=== PATIENT | female | born 1940 | race Caucasian/White ===

== ENCOUNTER 2018-11-04 15:54 | Inpatient (IN) | payer MEDICARE, OTHER ==
[~2018-11-04] VITALS: Ht 157.5 cm; Wt 47.6 kg
[2018-11-04 20:16] VITALS: BP 145/77
[2018-11-04] MEDS ORDERED: Z GUARD REMEDY PASTE 57 GM TUBE TOP PRN (20:30)
[2018-11-04] MEDS ORDERED: LIDO30AD10 TD (22:23)
[2018-11-04] MEDS ORDERED: OMEP20TA20 GT (22:23)
[2018-11-04] MEDS ORDERED: IBUP-1957 GT (22:23)
[2018-11-04] MEDS ORDERED: ASCO500P18 GT (22:23)
[2018-11-04] MEDS ORDERED: LORA1TAB GT (22:23)
[2018-11-04] MEDS ORDERED: CALC-7 GT (22:23)
[2018-11-04] MEDS ORDERED: GUAI1TBM19 GT (22:23)
[2018-11-04] MEDS ORDERED: CLON1TAB GT (22:23)
[2018-11-04] MEDS ORDERED: HYDR-3326 GT (22:23)
[2018-11-04] MEDS ORDERED: CYCL30DR OP (22:23)
[2018-11-04] MEDS: JEVITY 1.2 1000 ML LIQUID GT SCH (23:09)
--- NOTE | 2018-11-05 04:49 | NUR ---
received a 77 yr old female from [facility] via gurney @ 1945pm (11/04/18) with admitting diagnosis of S/P right total hip arthroplasty done on (10/29) by Dr Lepe. Awake alert and oriented x3 but patient non-verbal. Has Hx of HTN, GERD, Multiple sclerosis, ALS (Soraida Gehrig's disease) and progressive bulbar dysfunction. Patient accompanied by daughter and outdoor emergency care technician on at all times. Vital signs taken and recorded. T96.7 HR 83 Resp 18 BP 145/77 pulse Ox 95% RA. Skin intact with redness on sacral area, Right hip incision with steristrips and iodoform gauze intact and healing. Patient been having this mucus drooling with whitish secretions noted, suctioned as needed, with yadira. Patient able to do own suction. Patient incontinent of bowel and bladder. Kept clean and dry. BM noted this shift. Patient also has a Gtube flushed and patent, on Jevity bolus feeds given q6hr as ordered. Tolerated Gtube feeings well. No nausea nor vomiting noted. Dr Norton aware of patient's admission and meds need to reconcile. No signs of agitation nor restlessness.Will monitor patient.
[2018-11-05 06:04] VITALS: BP 131/66
[2018-11-05] MEDS: JEVITY 1.2 1000 ML LIQUID GT SCH ×4 (06:16→23:06)
[2018-11-05 08:33] VITALS: BP 146/69
--- NOTE | 2018-11-05 09:30 | NUR ---
Received pt. in bed in no distress. A/OX3 non-verbal but able to make her needs known through gestures. Pt. showered this AM and tolerated well. G-tube care rendered. RT. hip surgical incision dressing changed PRN soiled. Seen by Dr. Belcher this AM with AM labs ordered. Pt. with PVT CG x 24 hrs. DTR at bedside for support. All pt. needs attended and met promptly. Safety measures in place. Call light and all frequently used items within pt. reach. Will continue to monitor accordingly.
[2018-11-05] MEDS ORDERED: GUAIFENESIN/DEXTROMETHORPHAN TAB.SR.12H PO PRN (09:45)
[2018-11-05] MEDS ORDERED: CLONAZEPAM 1 MG TABLET GT PRN (09:45)
[2018-11-05] MEDS: CALCIUM CARB/VITAMIN D 250MG-125UNITS TABLET GT SCH (10:00)
[2018-11-05] MEDS: ASCORBIC ACID 500 MG TABLET GT SCH (10:00)
[2018-11-05] MEDS: PANTOPRAZOLE ORAL SUSPENSION 40 MG SUSPDR.PKT GT SCH (11:18)
--- NOTE | 2018-11-05 11:19 | NUR ---
INTERDISCIPLINARY TEAM CONFERENCE
[2018-11-05] MEDS: LORAZEPAM 1 MG TABLET GT PRN ×2 (12:42→19:59)
[2018-11-05] MEDS: LIDOCAINE 5% PATCH TD SCH (12:43)
--- NOTE | 2018-11-05 13:29 | NUR ---
Spoke to DTR about Restasis eye drops. Per DTR, she will bring eye drops on her next visit.
[2018-11-05] MEDS ORDERED: GUAIFENESIN/DEXTROMETHORPHAN 5 ML UDC GT PRN (13:45)
[2018-11-05 16:13] VITALS: BP 143/80
[2018-11-05] MEDS ORDERED: RESTASIS EYE EACHEYE SCH (17:00)
--- NOTE | 2018-11-05 18:23 | NUR ---
End of shift note: No significant change during this shift. Pt. seen by Dr. De Los Santos this PM. All needs attended and met promptly. Safety measures in placed. Bed in low position, brake on, side rails up x2 as an enabler. Call light and all frequently used items within pt. reach. Will endorse to next shift accordingly.
[2018-11-05] MEDS: IBUPROFEN 800 MG TABLET GT PRN (18:57)
[2018-11-05 20:08] VITALS: BP 131/75
--- NOTE | 2018-11-05 21:22 | NUR ---
Received pt in bed, AAO x 4 with caregiver at bedside. Nonverbal, but able to communicate using body language and nonverbal cues. Denies pain or discomfort at this time. GTube noted, flushed with sterile water; patent and intact, no noted distension; soft & nontender. All safety measures and fall precautions maintained. Call light and all personal belongings within reach. Caregiver at bedside. Will continue to monitor.
[2018-11-06 04:17] VITALS: BP 136/72
[2018-11-06] MEDS: JEVITY 1.2 1000 ML LIQUID GT SCH ×4 (06:05→21:16)
[2018-11-06] MEDS: PANTOPRAZOLE ORAL SUSPENSION 40 MG SUSPDR.PKT GT SCH (06:06)
[2018-11-06 06:30] LABS: BASOPHILS % (AUTO) 0.5 % (0.0-2.0); EOSINOPHILS # (AUTO) 0.2 K/uL (0.0-0.7); HEMATOCRIT 32.9 % (31.2-41.9); LYMPHOCYTES # (AUTO) 1.2 K/uL (20.0-40.0); LYMPHOCYTES % (AUTO) 20.2 % (20.5-51.5); MEAN CORPUSCULAR HEMOGLOBIN 31.7 uug (24.7-32.8); MEAN CORPUSCULAR HGB CONC 33 g/dL (32.3-35.6); MEAN CORPUSCULAR VOLUME 95.2 fL (75.5-95.3); MONOCYTES # (AUTO) 0.6 K/uL (2.0-10.0); MONOCYTES % (AUTO) 10.8 % (0.0-11.0); NEUTROPHILS # (AUTO) 3.8 K/uL (1.8-8.9); NEUTROPHILS % (AUTO) 65.5 % (38.5-71.5); PLATELET COUNT (AUTO) 329 K/uL (179-408); RED BLOOD CELL COUNT(AUTO) 3.45 MIL/uL (3.63-4.92); WHITE BLOOD COUNT (AUTO) 5.7 K/uL (3.8-11.8)
[2018-11-06 06:55] LABS: CARBON DIOXIDE 32 mmol/L (21-32); CHLORIDE 105 mmol/L (98-107); CREATININE 0.4 mg/dL (0.6-1.3); GLUCOSE 105 mg/dL (74-106); PHOSPHOROUS 3.7 mg/dL (2.5-4.9); POTASSIUM 3.3 mmol/L (3.5-5.1); UREA NITROGEN, BLOOD 12 mg/dL (7-18)
[2018-11-06] MEDS: LIDOCAINE 5% PATCH TD SCH (09:11)
[2018-11-06] MEDS: ASCORBIC ACID 500 MG TABLET GT SCH (09:11)
[2018-11-06] MEDS: CALCIUM CARB/VITAMIN D 250MG-125UNITS TABLET GT SCH (09:12)
[2018-11-06] MEDS: LORAZEPAM 1 MG TABLET GT PRN ×2 (11:15→21:11)
[2018-11-06] MEDS: IBUPROFEN 800 MG TABLET GT PRN (12:53)
[2018-11-06] MEDS ORDERED: POTASSIUM CHLORIDE 20 MEQ POWDER PACKET GT ONE (13:30)
--- NOTE | 2018-11-06 15:44 | NUR ---
jevity for 1800 given early per pt request says she is feeling hungry
[2018-11-06] MEDS: ACETYLCYSTEINE 10% 4ML VIAL NEB SCH ×2 (16:11→23:09)
[2018-11-06] MEDS: ALBUTEROL SULFATE 2.5 MG/ 0.5 ML NEBU NEB SCH ×2 (17:45→23:09)
[2018-11-06 20:00] VITALS: BP 138/79
--- NOTE | 2018-11-06 20:00 | NUR ---
Received patient awake and alert with caregiver at bedside. No signs of acute distress noted. Patient is non-verbal, but understands commands. Able to make needs known with caregiver. G-tube noted. Safety measures initiated. Bed is low and locked, call light within reach. Will continue to monitor.
--- NOTE | 2018-11-06 21:33 | NUR ---
Administered Jevity 1.2 scheduled at 0000 early due to patient saying she was hungry. It is scheduled Q6H. Last one was given at 1544
[2018-11-07] MEDS: IBUPROFEN 800 MG TABLET GT PRN ×3 (00:45→19:03)
--- NOTE | 2018-11-07 05:45 | NUR ---
Patient slept well throughout shift. No acute distress noted. Caregiver at bedside. Complained of pain with PRN motrin given and was effective. Vitals WNL. Safety measures given.
[2018-11-07 06:17] VITALS: BP 122/65
[2018-11-07] MEDS: JEVITY 1.2 1000 ML LIQUID GT SCH ×4 (06:18→23:15)
[2018-11-07] MEDS: ALBUTEROL SULFATE 2.5 MG/ 0.5 ML NEBU NEB SCH ×3 (06:26→22:34)
[2018-11-07] MEDS: ACETYLCYSTEINE 10% 4ML VIAL NEB SCH ×3 (06:26→22:34)
[2018-11-07] MEDS: PANTOPRAZOLE ORAL SUSPENSION 40 MG SUSPDR.PKT GT SCH (06:33)
[2018-11-07] MEDS: CALCIUM CARB/VITAMIN D 250MG-125UNITS TABLET GT SCH (09:33)
[2018-11-07] MEDS: ASCORBIC ACID 500 MG TABLET GT SCH (09:33)
[2018-11-07] MEDS: LIDOCAINE 5% PATCH TD SCH (09:35)
[2018-11-07] MEDS: LORAZEPAM 1 MG TABLET GT PRN ×2 (10:41→19:03)
--- NOTE | 2018-11-07 11:36 | NUR ---
INDIVIDUALIZED OVERALL PLAN OF CARE
--- NOTE | 2018-11-07 18:17 | NUR ---
IN BED RESTING QUIETLY. CAREGIVER AT BEDSIDE. STEFF GT FEEDS MIN RESIDUALS NOTED <20ML
[2018-11-07 19:31] VITALS: BP 136/81
[2018-11-07] MEDS: CLONAZEPAM 1 MG TABLET GT PRN (23:06)
[2018-11-07] MEDS: HYDROCODONE/APAP 5-325MG TABLET GT PRN (23:06)
[2018-11-08] MEDS: PANTOPRAZOLE ORAL SUSPENSION 40 MG SUSPDR.PKT GT SCH (06:01)
[2018-11-08] MEDS: JEVITY 1.2 1000 ML LIQUID GT SCH ×4 (06:01→23:48)
--- NOTE | 2018-11-08 06:16 | NUR ---
slept well most of the shift. awake alert and oriented. intensive care unit registered nurse at bedside. Gtube intact, Jevity 250 ml q6hr given as scheduled. Needs attended. Repositioned for comfort. Turned q2hr. Incontinent of bowel and bladder. Kept clean and dry. Will monitor patient.
[2018-11-08 07:00] VITALS: BP 120/59
[2018-11-08] MEDS: ACETYLCYSTEINE 10% 4ML VIAL NEB SCH ×3 (07:04→22:40)
[2018-11-08] MEDS: ALBUTEROL SULFATE 2.5 MG/ 0.5 ML NEBU NEB SCH ×3 (07:05→22:40)
[2018-11-08] MEDS: CALCIUM CARB/VITAMIN D 250MG-125UNITS TABLET GT SCH (08:20)
[2018-11-08] MEDS: LIDOCAINE 5% PATCH TD SCH (08:20)
[2018-11-08] MEDS: ASCORBIC ACID 500 MG TABLET GT SCH (08:20)
--- NOTE | 2018-11-08 09:00 | NUR ---
Received pt. in bed in no distress. A/OX3 non-verbal but able to make her needs known through gestures. G-tube care rendered. RT. hip surgical incision dressing C/D/I. Pt. with PVT CG x 24 hrs. All pt. needs attended and met promptly. Safety measures in place. Call light and all frequently used items within pt. reach. Will continue to monitor accordingly.
[2018-11-08 09:33] VITALS: BP 131/71
[2018-11-08] MEDS: LORAZEPAM 1 MG TABLET GT PRN (09:50)
[2018-11-08] MEDS: HYDROCODONE/APAP 5-325MG TABLET GT PRN ×2 (12:25→21:14)
[2018-11-08 16:08] VITALS: BP 122/67
--- NOTE | 2018-11-08 18:24 | NUR ---
End of shift note: No significant change during this shift. Pt. seen by Dr. Scanlon this PM. All needs attended and met promptly. Safety measures in placed. Bed in low position, brake on, side rails up x2 as an enabler. Call light and all frequently used items within pt. reach. Will endorse to next shift accordingly.
[2018-11-08 19:56] VITALS: BP 128/66
[2018-11-08] MEDS: CLONAZEPAM 1 MG TABLET GT PRN (21:14)
--- NOTE | 2018-11-09 04:16 | NUR ---
patient awake and alert. caregiver at bedside. no acute distress noted. Tolerated meds well given thru her Gtube. Jevity 250ml also given at scheduled times. No nausea nor vomiting noted. VSS kept comfortable. HOB up at all times. Aspiration precautions maintained.Incontinent of bowel and bladder. Kept clean and dry. Needs attended. Will monitor patient.
[2018-11-09 06:18] VITALS: BP 130/67
[2018-11-09] MEDS: JEVITY 1.2 1000 ML LIQUID GT SCH ×4 (06:19→23:35)
[2018-11-09] MEDS: PANTOPRAZOLE ORAL SUSPENSION 40 MG SUSPDR.PKT GT SCH (06:30)
[2018-11-09] MEDS: ALBUTEROL SULFATE 2.5 MG/ 0.5 ML NEBU NEB SCH ×3 (07:35→23:11)
[2018-11-09] MEDS: ACETYLCYSTEINE 10% 4ML VIAL NEB SCH ×3 (07:35→23:11)
[2018-11-09 08:30] VITALS: BP 128/61
[2018-11-09] MEDS: LIDOCAINE 5% PATCH TD SCH (08:51)
[2018-11-09] MEDS: IBUPROFEN 800 MG TABLET GT PRN (08:51)
[2018-11-09] MEDS: ASCORBIC ACID 500 MG TABLET GT SCH (08:51)
[2018-11-09] MEDS: CALCIUM CARB/VITAMIN D 250MG-125UNITS TABLET GT SCH (08:51)
--- NOTE | 2018-11-09 09:08 | NUR ---
Received pt. in bed in no distress. A/OX3 non-verbal but able to make her needs known through gestures. G-tube care rendered. RT. hip surgical incision dressing changed PRN soiled. Pt. with PVT CG x 24 hrs. All pt. needs attended and met promptly. Safety measures in place. Call light and all frequently used items within pt. reach. Will continue to monitor accordingly.
[2018-11-09 09:10] LABS: CALCITRIOL VIT D,1,25 DIHYDROX 62.3 pg/mL (19.9-79.3)
[2018-11-09] MEDS: LORAZEPAM 1 MG TABLET GT PRN (10:31)
[2018-11-09 16:27] VITALS: BP 114/67
--- NOTE | 2018-11-09 18:28 | NUR ---
End of shift note: No significant change during this shift. Pt. upgraded to puree diet for oral gratification today, tolerated first PM snacks with no s/sx of aspiration. All needs attended and met promptly. Safety measures in placed. Bed in low position, brake on, side rails up x2 as an enabler. Call light and all frequently used items within pt. reach. Will endorse to next shift accordingly.
--- NOTE | 2018-11-09 19:05 | NUR ---
[place], non verbal but able to make needs known. Caregiver at bedside. Denies any pain./discomforts at this time but requesting pain/sleeping meds at 2030. GT intact and patent. No s/s of infection/redness on Gt site. Safety measure and fall precaution maintained. Continue care as planned.
[2018-11-09 20:00] VITALS: BP 130/72
[2018-11-09] MEDS: CLONAZEPAM 1 MG TABLET GT PRN (21:55)
[2018-11-09] MEDS: HYDROCODONE/APAP 5-325MG TABLET GT PRN (21:55)
--- NOTE | 2018-11-09 21:55 | NUR ---
Medicated for pain as needed and ordered. Will monitor.
[2018-11-10] MEDS: IBUPROFEN 800 MG TABLET GT PRN ×2 (01:45→08:02)
--- NOTE | 2018-11-10 01:45 | NUR ---
Complaining of leg pain, Motrin given as needed. Will monitor.
[2018-11-10] MEDS: PANTOPRAZOLE ORAL SUSPENSION 40 MG SUSPDR.PKT GT SCH (06:11)
[2018-11-10] MEDS: JEVITY 1.2 1000 ML LIQUID GT SCH ×4 (06:11→23:17)
[2018-11-10 06:28] VITALS: BP 122/69
[2018-11-10] MEDS: ACETYLCYSTEINE 10% 4ML VIAL NEB SCH ×3 (07:20→22:38)
[2018-11-10] MEDS: ALBUTEROL SULFATE 2.5 MG/ 0.5 ML NEBU NEB SCH ×3 (07:20→22:38)
[2018-11-10] MEDS: ASCORBIC ACID 500 MG TABLET GT SCH (08:01)
[2018-11-10] MEDS: LIDOCAINE 5% PATCH TD SCH (08:01)
[2018-11-10] MEDS: CALCIUM CARB/VITAMIN D 250MG-125UNITS TABLET GT SCH (08:01)
[2018-11-10 09:18] VITALS: BP 122/56
--- NOTE | 2018-11-10 09:22 | NUR ---
Received pt. in bed in no distress. A/Ox3 non-verbal but able to make her needs known through gestures, facial expression, and writing. G-tube care rendered. RT. hip surgical incision dressing C/D/I. Pt. with PVT CG at bedside for support. All pt. needs attended and met promptly. Safety measures in place. Call light and all frequently used items within pt. reach. Will continue to monitor accordingly.
[2018-11-10] MEDS: LORAZEPAM 1 MG TABLET GT PRN ×2 (10:35→23:17)
[2018-11-10] MEDS: HYDROCODONE/APAP 5-325MG TABLET GT PRN (12:37)
[2018-11-10 15:59] VITALS: BP 111/63
[2018-11-10] MEDS ORDERED: MAGNESIUM HYDROXIDE 30 ML LIQUID UDC PO PRN (17:45)
[2018-11-10] MEDS ORDERED: MAGNESIUM HYDROXIDE 30 ML LIQUID UDC GT PRN (18:00)
--- NOTE | 2018-11-10 18:06 | NUR ---
End of shift note: No significant change during this shift. All needs attended and met promptly. Seen by Dr. Scanlon with new order for MOM prn constipation. Safety measures in placed. Bed in low position, brake on, side rails up x2 as an enabler. Call light and all frequently used items within pt. reach. Will endorse to next shift accordingly.
[2018-11-10 19:45] VITALS: BP 124/65
--- NOTE | 2018-11-10 19:45 | NUR ---
Patient received in bed, AAO x4. Non-verbal but able to make needs known through gesture, facial expression, and writing. No acute distress or SOB noted. On room air. No Complain of pain at this time. GT in placed. Private caregiver at the bedside for support. Physical assessment done. Safety measures observed. Fall precaution maintained. Bed in low position, side rails up x2 for safety, brake and alarm on. call light and personal belongings within reach. Continue to monitor.
[2018-11-11] MEDS: HYDROCODONE/APAP 5-325MG TABLET GT PRN ×2 (01:25→20:34)
[2018-11-11] MEDS: PANTOPRAZOLE ORAL SUSPENSION 40 MG SUSPDR.PKT GT SCH (06:21)
[2018-11-11] MEDS: JEVITY 1.2 1000 ML LIQUID GT SCH ×3 (06:21→18:53)
[2018-11-11] MEDS: POLYVINYL ALCOHOL OPHT DROPS 15 ML BOTTLE EACHEYE PRN (06:25)
[2018-11-11 06:47] VITALS: BP 139/74
[2018-11-11] MEDS: ACETYLCYSTEINE 10% 4ML VIAL NEB SCH ×3 (07:17→22:30)
[2018-11-11] MEDS: ALBUTEROL SULFATE 2.5 MG/ 0.5 ML NEBU NEB SCH ×3 (07:17→22:30)
--- NOTE | 2018-11-11 07:26 | NUR ---
End of the shift note Patient was stable throughout the shift and has a good sleep last night. No acute distress or SOB noted. Caregiver at bedside. On room air. Complained of pain on right hip. Pain assessed and reassessed after pain medication. All due medication given as ordered through GT. Checked Vital Signs. Physical assessment done. Safety measures observed. Fall precaution maintained. Bed in low position, side rails up x2 for safety, brake and alarm on. call light and personal belongings within reach. Continue to monitor and will endorse to the day shift nurse accordingly.
[2018-11-11] MEDS: ASCORBIC ACID 500 MG TABLET GT SCH (08:48)
[2018-11-11] MEDS: LIDOCAINE 5% PATCH TD SCH (08:49)
[2018-11-11] MEDS: CALCIUM CARB/VITAMIN D 250MG-125UNITS TABLET GT SCH (08:49)
--- NOTE | 2018-11-11 09:14 | NUR ---
Patient awake, alert, oriented x 3, sitting on the wheelchair, not in any distress. Patient is non-verbal but able to make needs known through writing and gestures. G-tube care rendered. Patient needs attended and met promptly. Patient's daughter at bedside. Call light and frequently used items placed within reach. Will continue to monitor accordingly.
--- NOTE | 2018-11-11 14:51 | NUR ---
Dr. Dubon came to see patient, gave MD update, that tube feeding have been discontinued but oral intake is not enough. Per MD resume tube feeding.
[2018-11-11 15:54] VITALS: BP 131/80
--- NOTE | 2018-11-11 16:59 | NUR ---
Nutrition consult from nursing (family requested) Spoke with daughter at bedside. Pt is on oral gratification, obtained food preferences Pt continues to be on bolus feed, family requested to calculate pt needs since pt lost weight. Per daughter, pt's recs to have her feed 6 cans (237ml/can) of jevity 1.2 per day, pt getting at least 4 at home. Discussed with nurse about increase feeding Labs: 11/06: K 3.3L, BUN 12, Cr 0.4L Est. needs based on 48kg ABW (pt is very underweight) Kcal: 0868-5704 kcal/d based on 30-35/ 48kg ABW Protein: 58-67 gm/d based on 1.2-1.4/ 48kg ABW Fluid: ~ 1920ml/d Bolus feed ordered: 250 ml x4 daily. This provides 1000ml volume, 1200 kcal, 56 gm protein and 807 ml water Dietitian's Recommendation: -Pt on pureed oral gratification, po intake 10-15% (only send 1/2 portion) -Based on pt's needs for weight gain, recs increase feeding to 250 ml x5 daily. At goal will provide 1250 ml volume, 1500 kcal, 69 gm protein and 1008 ml water. This meets 89% est kcal needs and 100% est protein needs at high end -Water flushes: 150 ml x5 daily or modify fluid as pt tolerates Addendum: 11/11/18 at [address] Amended: Links added.
--- NOTE | 2018-11-11 19:00 | NUR ---
In bed, awake, alert and oriented x 3, able to make needs known. Denies any pain/discomforts at this time. Caregiver at bedside. Safety measures and fall precaution maintained. Continue care as planned.
[2018-11-11 19:50] VITALS: BP 147/84
[2018-11-11] MEDS: CLONAZEPAM 1 MG TABLET GT PRN (20:34)
--- NOTE | 2018-11-11 20:35 | NUR ---
Medicated for pain and anxiety as needed. Will monitor.
[2018-11-12] MEDS: JEVITY 1.2 1000 ML LIQUID GT SCH ×4 (06:09→16:57)
[2018-11-12] MEDS: PANTOPRAZOLE ORAL SUSPENSION 40 MG SUSPDR.PKT GT SCH (06:09)
[2018-11-12 06:11] VITALS: BP 122/62
--- NOTE | 2018-11-12 06:16 | NUR ---
Shift End Report: Slept good. Medicated once for pain with relief. MOM not effective. Will continue to monitor. All needs attended and met. No significant event reported all night. Continue current rehab plan of care. VS stable.
[2018-11-12 06:42] LABS: ALANINE AMINOTRANSFERASE 39 U/L (14-59); ALKALINE PHOSPHATASE 77 U/L (50-136); ASPARTATE AMINOTRANSFERASE 21 U/L (15-37); BILIRUBIN,TOTAL 0.8 mg/dL (0.2-1.0); CARBON DIOXIDE 35 mmol/L (21-32); CHLORIDE 107 mmol/L (98-107); CREATININE 0.5 mg/dL (0.6-1.3); GLUCOSE 92 mg/dL (74-106); MAGNESIUM 2.2 mg/dL (1.8-2.4); PHOSPHOROUS 3.3 mg/dL (2.5-4.9); TOTAL PROTEIN, SERUM 5.9 g/dL (6.4-8.2); UREA NITROGEN, BLOOD 12 mg/dL (7-18)
[2018-11-12 07:00] LABS: BASOPHILS % (AUTO) 0.6 % (0.0-2.0); EOSINOPHILS # (AUTO) 0.1 K/uL (0.0-0.7); EOSINOPHILS % (AUTO) 2.8 % (0.0-7.0); HEMOGLOBIN 10.8 g/dL (10.9-14.3); LYMPHOCYTES # (AUTO) 1.1 K/uL (20.0-40.0); LYMPHOCYTES % (AUTO) 25.7 % (20.5-51.5); MEAN CORPUSCULAR HEMOGLOBIN 31.5 uug (24.7-32.8); MEAN CORPUSCULAR HGB CONC 33 g/dL (32.3-35.6); MEAN CORPUSCULAR VOLUME 96.3 fL (75.5-95.3); MONOCYTES # (AUTO) 0.5 K/uL (2.0-10.0); MONOCYTES % (AUTO) 10.5 % (0.0-11.0); NEUTROPHILS # (AUTO) 2.7 K/uL (1.8-8.9); NEUTROPHILS % (AUTO) 60.4 % (38.5-71.5); PLATELET COUNT (AUTO) 337 K/uL (179-408); RED BLOOD CELL COUNT(AUTO) 3.43 MIL/uL (3.63-4.92); WHITE BLOOD COUNT (AUTO) 4.4 K/uL (3.8-11.8)
[2018-11-12] MEDS: ALBUTEROL SULFATE 2.5 MG/ 0.5 ML NEBU NEB SCH ×2 (08:09→15:28)
[2018-11-12] MEDS: ACETYLCYSTEINE 10% 4ML VIAL NEB SCH ×2 (08:09→15:29)
[2018-11-12] MEDS: CALCIUM CARB/VITAMIN D 250MG-125UNITS TABLET GT SCH (08:16)
[2018-11-12] MEDS: ASCORBIC ACID 500 MG TABLET GT SCH (08:17)
[2018-11-12] MEDS: LIDOCAINE 5% PATCH TD SCH (08:17)
[2018-11-12] MEDS: LORAZEPAM 1 MG TABLET GT PRN ×2 (10:30→20:46)
--- NOTE | 2018-11-12 13:00 | NUR ---
INTERDISCIPLINARY TEAM CONFERENCE
[2018-11-12] MEDS: IBUPROFEN 800 MG TABLET GT PRN (18:45)
[2018-11-12 20:10] VITALS: BP 156/72
--- NOTE | 2018-11-12 20:16 | NUR ---
awake alert upon initial rounds. daycare assistant at bedside. Gtub intact, flushed and patent. patient on Jevity 250ml bolus q6hr. Tolerated well. VSS. No acute distress noted. Kept comfortable. Will monitor patient.
[2018-11-12] MEDS: CLONAZEPAM 1 MG TABLET GT PRN (20:47)
[2018-11-13] MEDS: ACETYLCYSTEINE 10% 4ML VIAL NEB SCH ×4 (00:30→23:56)
[2018-11-13] MEDS: ALBUTEROL SULFATE 2.5 MG/ 0.5 ML NEBU NEB SCH ×4 (00:42→23:56)
[2018-11-13] MEDS: JEVITY 1.2 1000 ML LIQUID GT SCH ×5 (00:46→23:20)
[2018-11-13 05:37] VITALS: BP 129/62
[2018-11-13] MEDS: PANTOPRAZOLE ORAL SUSPENSION 40 MG SUSPDR.PKT GT SCH (06:13)
[2018-11-13] MEDS: LIDOCAINE 5% PATCH TD SCH (10:43)
[2018-11-13] MEDS: ASCORBIC ACID 500 MG TABLET GT SCH (10:43)
[2018-11-13] MEDS: CALCIUM CARB/VITAMIN D 250MG-125UNITS TABLET GT SCH (10:45)
--- NOTE | 2018-11-13 19:05 | NUR ---
Up in a wheelchair. Denies any pain/discomforts. Family and caregiver at bedside. Safety measure and fall precaution maintained. Continue care as planned.
[2018-11-13 20:00] VITALS: BP 136/70
[2018-11-13] MEDS: LORAZEPAM 1 MG TABLET GT PRN (20:24)
[2018-11-14 06:05] VITALS: BP 142/71
[2018-11-14] MEDS: JEVITY 1.2 1000 ML LIQUID GT SCH ×4 (06:14→23:22)
[2018-11-14] MEDS: PANTOPRAZOLE ORAL SUSPENSION 40 MG SUSPDR.PKT GT SCH (06:14)
--- NOTE | 2018-11-14 06:36 | NUR ---
Shift End Report: Slept well. Medicated once for anxiety/sleep, effective. No complaint presented. Caregiver remain at bedside. No fall/injury reported. All needs attended and met. No significant event reported all night. Continue current rehab plan of care.
[2018-11-14] MEDS: ALBUTEROL SULFATE 2.5 MG/ 0.5 ML NEBU NEB SCH ×3 (08:02→23:12)
[2018-11-14] MEDS: ACETYLCYSTEINE 10% 4ML VIAL NEB SCH ×3 (08:03→23:12)
[2018-11-14] MEDS: LIDOCAINE 5% PATCH TD SCH (09:00)
[2018-11-14] MEDS: CALCIUM CARB/VITAMIN D 250MG-125UNITS TABLET GT SCH (09:23)
[2018-11-14] MEDS: ASCORBIC ACID 500 MG TABLET GT SCH (09:23)
[2018-11-14] MEDS: IBUPROFEN 800 MG TABLET GT PRN (12:04)
[2018-11-14] MEDS: LORAZEPAM 1 MG TABLET GT PRN ×2 (12:04→23:22)
--- NOTE | 2018-11-14 19:45 | NUR ---
Received pt up in wheelchair, AAO x 3, with private caregiver at bedside. Unable to speak but able to communicate via nonverbal & written communication (pen & paper). No acute distress noted. All safety measures and fall precautions maintained. Call light and all personal belongings within reach. Will continue to monitor.
[2018-11-14 20:00] VITALS: BP 130/75
[2018-11-14] MEDS: HYDROCODONE/APAP 5-325MG TABLET GT PRN (23:57)
[2018-11-15 06:06] VITALS: BP 118/62
[2018-11-15] MEDS: PANTOPRAZOLE ORAL SUSPENSION 40 MG SUSPDR.PKT GT SCH (06:16)
[2018-11-15] MEDS: JEVITY 1.2 1000 ML LIQUID GT SCH ×3 (06:17→17:28)
[2018-11-15] MEDS: ACETYLCYSTEINE 10% 4ML VIAL NEB SCH ×3 (07:00→23:27)
[2018-11-15] MEDS: ALBUTEROL SULFATE 2.5 MG/ 0.5 ML NEBU NEB SCH ×3 (07:00→23:27)
[2018-11-15 08:45] VITALS: BP 125/63
[2018-11-15] MEDS: LIDOCAINE 5% PATCH TD SCH (08:58)
[2018-11-15] MEDS: ASCORBIC ACID 500 MG TABLET GT SCH (08:58)
[2018-11-15] MEDS: CALCIUM CARB/VITAMIN D 250MG-125UNITS TABLET GT SCH (08:58)
[2018-11-15] MEDS: IBUPROFEN 800 MG TABLET GT PRN (09:12)
[2018-11-15] MEDS: POLYVINYL ALCOHOL OPHT DROPS 15 ML BOTTLE EACHEYE PRN (09:34)
--- NOTE | 2018-11-15 09:40 | NUR ---
Patient is awake, alert, oriented x 3, sitting on the wheelchair, no noted distress. Patient is non-verbal but able to make needs known through gestures and writing. Patient's personal fitness trainer at bedside. G-tube care rendered. Patient needs attended and met promptly. Call light and frequently used items placed within reach. Will continue to monitor accordingly.
[2018-11-15] MEDS: LORAZEPAM 1 MG TABLET GT PRN (12:46)
[2018-11-15 16:09] VITALS: BP 126/66
--- NOTE | 2018-11-15 19:05 | NUR ---
Awake, family and caregiver at bedside. Denies any pain/discomforts at this time. GT intact and patent. No redness /s/s of infection on Gt site. No s/s of aspiration. Safety measure and fall precaution maintained. Continue care as planned.
[2018-11-15 20:00] VITALS: BP 132/81
[2018-11-16] MEDS: LORAZEPAM 1 MG TABLET GT PRN (00:10)
[2018-11-16] MEDS: JEVITY 1.2 1000 ML LIQUID GT SCH ×4 (00:10→17:43)
[2018-11-16 05:46] VITALS: BP 119/56
--- NOTE | 2018-11-16 06:20 | NUR ---
Shift End Report: VS stable. Slept good after Ativan was given. Caregiver remain at bedside. No complaint presented all night. All needs attended and met. No significant event reported . Continue current rehab plan of care.
[2018-11-16] MEDS: PANTOPRAZOLE ORAL SUSPENSION 40 MG SUSPDR.PKT GT SCH (06:23)
[2018-11-16 08:30] VITALS: BP 128/67
[2018-11-16] MEDS: ACETYLCYSTEINE 10% 4ML VIAL NEB SCH ×3 (09:00→23:05)
[2018-11-16] MEDS: ALBUTEROL SULFATE 2.5 MG/ 0.5 ML NEBU NEB SCH ×3 (09:00→23:05)
[2018-11-16] MEDS: ASCORBIC ACID 500 MG TABLET GT SCH (09:19)
[2018-11-16] MEDS: LIDOCAINE 5% PATCH TD SCH (09:19)
[2018-11-16] MEDS: CALCIUM CARB/VITAMIN D 250MG-125UNITS TABLET GT SCH (09:19)
[2018-11-16] MEDS: IBUPROFEN 800 MG TABLET GT PRN (09:23)
--- NOTE | 2018-11-16 09:54 | NUR ---
Patient up ambulating with walker with the physical therapist, no complain of any pain or discomfort at this time.
[2018-11-16 16:43] VITALS: BP 133/79
--- NOTE | 2018-11-16 19:05 | NUR ---
Awake, up in the wheelchair. Denies any pain/discomforts at this time. Caregiver at bedside. GT intact and patent. No redness noted on Gt site. No s/s of aspiration noted.Safety measure and fall precaution maintained. Continue care as planned.
[2018-11-16 19:39] VITALS: BP 141/81
[2018-11-17] MEDS: LORAZEPAM 1 MG TABLET GT PRN ×3 (00:08→20:12)
[2018-11-17] MEDS: JEVITY 1.2 1000 ML LIQUID GT SCH ×5 (00:08→23:50)
[2018-11-17 05:27] VITALS: BP 130/62
[2018-11-17] MEDS: PANTOPRAZOLE ORAL SUSPENSION 40 MG SUSPDR.PKT GT SCH (06:14)
--- NOTE | 2018-11-17 06:35 | NUR ---
Shift End Report: Slept well. No complaint of pain presented all night. All needs attended and met. Caregiver at bedside. No s/s of aspiration noted. No significant event reported. Continue current rehab plan of care.
[2018-11-17] MEDS: ACETYLCYSTEINE 10% 4ML VIAL NEB SCH ×3 (07:26→23:22)
[2018-11-17] MEDS: ALBUTEROL SULFATE 2.5 MG/ 0.5 ML NEBU NEB SCH ×3 (07:26→23:22)
[2018-11-17] MEDS: CALCIUM CARB/VITAMIN D 250MG-125UNITS TABLET GT SCH (08:52)
[2018-11-17] MEDS: ASCORBIC ACID 500 MG TABLET GT SCH (08:52)
[2018-11-17] MEDS: IBUPROFEN 800 MG TABLET GT PRN (08:53)
[2018-11-17] MEDS: LIDOCAINE 5% PATCH TD SCH (08:53)
--- NOTE | 2018-11-17 09:30 | NUR ---
Received pt. in bed in no distress. A/Ox3 non-verbal but able to make her needs known through gestures, facial expression, and writing. G-tube care rendered. RT. hip surgical incision dressing C/D/I. Pt. with PVT CG at bedside for support. Pt. noted with increase oral secretion, oral suction performed and tolerated well. All pt. needs attended and met promptly. Safety measures in place. Call light and all frequently used items within pt. reach. Will continue to monitor accordingly.
[2018-11-17 09:59] VITALS: BP 126/65
[2018-11-17 16:48] VITALS: BP 133/79
--- NOTE | 2018-11-17 18:01 | NUR ---
End of shift note: No significant change during this shift. All needs attended and met promptly. Safety measures in placed. Bed in low position, brake on, side rails up x2 as an enabler. Call light and all frequently used items within pt. reach. Will endorse to next shift accordingly.
--- NOTE | 2018-11-17 19:05 | NUR ---
Awake, up in a wheelchair inside her room, caregiver at bedside. has drooling while watching movie from her iphone. Good oral care provided. Denies any pain/discomforts at this time. GT intact and patent. Safety measure and fall precaution maintained. Continue care as planned.
[2018-11-17 19:48] VITALS: BP 139/85
[2018-11-18] MEDS: CLONAZEPAM 1 MG TABLET GT PRN (00:37)
[2018-11-18 05:46] VITALS: BP 114/51
--- NOTE | 2018-11-18 05:56 | NUR ---
Shift End Report: Slept in between care. VS stable. No complaint presented. Medicated as needed/requested. Able to suction self orally with demarco colored secretion. caregiver at bedside, attended all her needs. No significant event reported all night. Continue current rehab plan of care.
[2018-11-18] MEDS: JEVITY 1.2 1000 ML LIQUID GT SCH ×3 (06:23→17:05)
[2018-11-18] MEDS: PANTOPRAZOLE ORAL SUSPENSION 40 MG SUSPDR.PKT GT SCH (06:23)
[2018-11-18] MEDS: ACETYLCYSTEINE 10% 4ML VIAL NEB SCH ×2 (07:06→15:15)
[2018-11-18] MEDS: ALBUTEROL SULFATE 2.5 MG/ 0.5 ML NEBU NEB SCH ×2 (07:06→15:15)
[2018-11-18] MEDS: CALCIUM CARB/VITAMIN D 250MG-125UNITS TABLET GT SCH (08:32)
[2018-11-18] MEDS: LIDOCAINE 5% PATCH TD SCH (08:33)
[2018-11-18] MEDS: ASCORBIC ACID 500 MG TABLET GT SCH (08:33)
[2018-11-18] MEDS: IBUPROFEN 800 MG TABLET GT PRN (08:33)
--- NOTE | 2018-11-18 08:45 | NUR ---
Received pt. in bed in with eyes closed. A/OX3 non-verbal but able to make her needs known through gestures, facial expression, and writing. Assisted with AM ADLs. RT. hip surgical incision dressing C/D/I. Pt. with PVT CG at bedside for support. All pt. needs attended and met promptly. Safety measures in place. Call light and all frequently used items within pt. reach. Will continue to monitor accordingly.
[2018-11-18 09:08] VITALS: BP 117/68
[2018-11-18] MEDS: LORAZEPAM 1 MG TABLET GT PRN (09:08)
[2018-11-18 16:17] VITALS: BP 135/83
--- NOTE | 2018-11-18 17:50 | NUR ---
Discharge Note: Pt. remained stable at this time. Dr. Scanlon deemed pt. safe for discharge today 11/18/[address] Belcher signed TMS form on 11/17/18. Pt. remain cooperative, A/OX4 with capacity to make decision. Lungs sounds clear to auscultation bilaterally, no respiratory distress. Heart with regular rate and rhythm, no murmur, rub or gallop. Abdomen soft, non-tender, bowel sounds present in all 4 quadrants. G-tube site care provided. Conjunctivae clear, PERRL. All belongings are prepared. Inventory done all accountable for. DTR took all of pt. belongings with no missing items. Skin condition re-assessed, photos taken and placed in pt. chart. Instructed pt. to follow up with PCP and Ortho. Pt. teaching provided which include but not limited to meds administration, risk of fall, and skin mgt. Gave pt. and family information regarding returning to community. Discharge paper signed by pt. witnessed by this aligner typewriter and pvt CG. RX faxed to [facility] with confirmation per family/pt. preference. Original RX included in packet. Provided pt. discharge packet. No further questions from the pt. about the discharge instructions at this time. EMT on-site @ 1715, provided report to receiving staff. Pt. left the facility at 1750 with EMT staff and pvt. caregiver and d/c to home with outpatient rehab to provide PT/OT/ST services. made aware of resident discharge.
== END 2018-11-18 17:50 | disposition home or self-care (01) | DRG 560 ==
LOC: EDBD 19:53
PROVIDERS: ADMIT Physical Medicine & Rehabilitation Pain Medicine; ATTEND Physical Medicine & Rehabilitation Pain Medicine
DX: Z47.1 Aftercare following joint replacement surgery (principal); E46 Unspecified protein-calorie malnutrition; G12.21 Amyotrophic lateral sclerosis; J96.10 Chronic respiratory failure, unspecified whether with hypoxia or hypercapnia; Z96.641 Presence of right artificial hip joint; I10 Essential (primary) hypertension; R25.1 Tremor, unspecified; Z88.0 Allergy status to penicillin; Z91.040 Latex allergy status
CPT/HCPCS: 36415; 70030-TC; 74230; 82652; 83735; 83970; 84100; 85025; 92507; 92523; 92526; 92610; 92611; 94640; 97110; 97112; 97116; 97165; 97530; 97535; A4217; A4663

== ENCOUNTER 2018-12-17 09:28 | Emergency (ER) | payer MEDICARE, OTHER ==
[~2018-12-17] VITALS: Ht 160 cm; Wt 45.4 kg
[~2018-12-17 09:28] MED LIST: ASCO500P18 GT; CALC-7 GT; CLON1TAB GT; CYCL30DR OP; GUAI1TBM19 GT; HYDR-3326 GT; IBUP-1957 GT; LIDO30AD10 TD; LORA1TAB GT; OMEP20TA20 GT
--- NOTE | 2018-12-17 09:39 | NUR ---
HENRY TEJADA AT BEDSIDE FOR MSE.
--- NOTE | 2018-12-17 09:41 | NUR ---
20 FR GASTRIC TUBE INTACT, NO LEAKAGE, ABLE TO FLUSH. RESIDUAL VOLUME 10CC, YELLOW FLUID. NO REDNESS NOTED AT THE BASE OF THE TUBE.
--- NOTE | 2018-12-17 09:53 | NUR ---
Patient discharged to home in stable conditon. Written and verbal after care instructions given. Patient verbalizes understanding of instructions. ALL BELONGINGS W/ PT.
[2018-12-17 09:54] VITALS: BP 146/92
== END 2018-12-17 09:55 | disposition home or self-care (01) ==
LOC: ER 09:28
DX: R13.10 Dysphagia, unspecified (principal); F41.9 Anxiety disorder, unspecified; Z93.1 Gastrostomy status; Z88.0 Allergy status to penicillin; Z91.040 Latex allergy status; Z79.1 Long term (current) use of non-steroidal anti-inflammatories (NSAID); Z79.899 Other long term (current) drug therapy
CPT/HCPCS: A4663